=== PATIENT | male | born 1975 | race Two or more races ===

== ENCOUNTER 2017-03-26 01:07 | Emergency (ER) | payer OTHER ==
[~2017-03-26] VITALS: Ht 167.6 cm; Wt 76.7 kg
[2017-03-26 01:35] VITALS: BP 119/87
[2017-03-26] MEDS ORDERED: CYCL10TA2 PO (02:28)
[2017-03-26] MEDS ORDERED: HYDR-971 PO (02:28)
[2017-03-26] MEDS ORDERED: NAPR500T PO (02:28)
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
[2017-03-26] MEDS ORDERED: traMADol 50 MG TABLET PO ONE (02:30)
[2017-03-26] MEDS ORDERED: KETOROLAC TROMETHAMINE 60 MG/2 ML INJ. IM ONE (02:30)
[2017-03-26] MEDS ORDERED: CYCLOBENZAPRINE 10 MG TABLET. PO ONE (02:30)
[2017-03-26] MEDS ORDERED: CYCLOBENZAPRINE 10 MG TABLET. ONE (02:35)
[2017-03-26] MEDS ORDERED: KETOROLAC TROMETHAMINE 30 MG/ML INJ. ONE (02:35)
[2017-03-26] MEDS ORDERED: traMADol 50 MG TABLET ONE (02:36)
== END 2017-03-26 02:48 | disposition home or self-care (01) ==
LOC: ER 01:07
DX: M54.5 Low back pain (principal); M25.511 Pain in right shoulder; F32.9 Major depressive disorder, single episode, unspecified; V43.52XA Car driver injured in collision with other type car in traffic accident, initial encounter; Y93.I9 Activity, other involving external motion; Y92.410 Unspecified street and highway as the place of occurrence of the external cause; Y99.8 Other external cause status
CPT/HCPCS: 96372; 99283; J1885